=== PATIENT | female | born 1955 | race Caucasian/White ===

== ENCOUNTER → 2017-11-05 | Outpatient (CLI) | payer BC ==
[~2017-11-05] MED LIST: ESTR1PAT TD; ESTR1PAT2 TD; PROG100C PO
--- NOTE | 2017-11-05 15:48 | RADIOLOGY IMAGING REPORT ---
FAC[facility] PATIENT NAME: MARY GRACE RAI : [id number] MR: [id number]: [id number] EXAM DATE: [id number] ORDERING PHYSICIAN: NEERAJ HOGAN TECHNOLOGIST: Alem Snow PROCEDURE:BILATERAL DIGITAL SCREENING MAMMOGRAM WITH CAD ASSISTED INTERPRETATION & 3D TOMOSYNTHESIS COMPARISON:Prior mammograms 11/04/16, 04/24/15, 03/27/14, 11/11/12. INDICATIONS:Screening FINDINGS: Moderately dense fibroglandular tissue is seen throughout the breasts. The parenchymal pattern has remained stable allowing for difference in mammographic technique & patient positioning. There is no evidence of malignant appearing mass, malignant appearing calcifications or other secondary sign of malignancy in either breast. DIAGNOSTIC CATEGORY 1--NEGATIVE. RECOMMENDATIONS: ROUTINE MAMMOGRAM AND CLINICAL EVALUATION. IMPRESSION: BIRADS 1: Negative No significant abnormality is seen. Dictated by: Duyen Gracia M.D. on 11/05/2017 at 15:30 Transcribed by: MILDRED on 11/05/2017 at 15:33 Approved by: Duyen Gracia M.D. on 11/05/2017 at 15:46 [facility]
== END ==
LOC: MAMO 03:27
PROVIDERS: ATTEND Obstetrics & Gynecology
DX: Z12.31 Encounter for screening mammogram for malignant neoplasm of breast (principal)
CPT/HCPCS: 77063; 77067